=== PATIENT | male | born 1980 | race African-American/Black ===

== ENCOUNTER 2016-10-21 14:20 | Emergency (ER) | payer OTHER ==
[~2016-10-21] VITALS: Ht 177.8 cm; Wt 100.0 kg
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
[2016-10-21 15:16] VITALS: BP 140/75; PULSE 74; RESP 15; TEMP 98.2; O2SAT 98
[2016-10-21] MEDS ORDERED: CYCL1TAB29 PO (15:16)
[2016-10-21] MEDS ORDERED: NAPR500 PO (15:16)
[2016-10-21 15:33] VITALS: BP 133/84
== END 2016-10-21 15:34 | disposition home or self-care (01) ==
LOC: NEPB 14:20
DX: S16.1XXA Strain of muscle, fascia and tendon at neck level, initial encounter (principal); V49.49XA Driver injured in collision with other motor vehicles in traffic accident, initial encounter; Y93.9 Activity, unspecified; Y92.410 Unspecified street and highway as the place of occurrence of the external cause
CPT/HCPCS: 99283

== ENCOUNTER 2016-11-03 14:47 | Emergency (ER) | payer SELFPAY ==
[~2016-11-03] VITALS: Ht 177.8 cm; Wt 95.0 kg
[~2016-11-03 14:47] MED LIST: CYCL1TAB29 PO; NAPR500 PO
[2016-11-03 14:50] VITALS: BP 129/75; PULSE 92; RESP 16; TEMP 98.1; O2SAT 99
--- NOTE | 2016-11-03 14:57 | PD ---
HPI Chief Complaint: ENT Complaint Time Seen by Provider: 14:57 Travel History International Travel<30 days: No Contact w/Intl Traveler<30days: No Traveled to known affect area: No History of Present Illness HPI 36-year-old male presents to the emergency department for evaluation of worsening sore throat over the last 3 days. Patient states is worse on the left than the right. He states it's very difficult to swallow. He is able to follow his secretions. He states he is drinking warm proximal and doing warm salt water gargles but this does not help his pain. He has been taking Tylenol and ibuprofen with no relief of his symptoms. Denies any chest or tightness. No difficulty breathing. No cough. No nausea or vomiting. No other symptoms to report. PFSH Past Medical History Medical History: Denies Significant Hx Social History Alcohol Use: Yes Tobacco Use: No Substance Use: Yes (marijuana) Allergies-Medications (Allergen,Severity, Reaction): Coded Allergies: No Known Allergies (Unverified , 11/03/16) Reported Meds & Prescriptions Reported Meds & Active Scripts Active Prednisone 50 Mg Tab 50 Mg PO DAILY 5 Days Augmentin (Amoxicillin-Clavulanate) 875-125 mg Tab 875 Mg PO BID 10 Days not for use in CrCl <30 ml/min. Naprosyn (Naproxen) 500 Mg Tab 500 Mg PO Q12HR PRN Flexeril (Cyclobenzaprine HCl) 10 Mg Tab 10 Mg PO Q8HR PRN Review of Systems Except as stated in HPI: all other systems reviewed are Neg Physical Exam Narrative GENERAL: Well-nourished male patient, ambulatory no acute distress SKIN: Warm and dry. HEAD: Atraumatic. Normocephalic. EYES: Pupils equal and round. No scleral icterus. No injection or drainage. ENT: Mucosa pink and moist. Significant Erythema with exudates. There is tonsillar enlargement on the left greater than the right. Erythemic and edema extends into the posterior palate on the left. No uvular edema. No uvular, palatal, or tonsillar deviation. Airway patent. Nasal turbinates appear normal without nasal blood, purulent drainage or septal hematoma. NECK: Trachea midline. No JVD. Left tonsillar lymphadenopathy. CARDIOVASCULAR: Regular rate and rhythm. No murmur appreciated. RESPIRATORY: No accessory muscle use. Clear to auscultation. Breath sounds equal bilaterally. GASTROINTESTINAL: Abdomen soft, non-tender, nondistended. Hepatic and splenic margins not palpable. MUSCULOSKELETAL: No obvious deformities. No clubbing. No cyanosis. No edema. NEUROLOGICAL: Awake and alert. No obvious cranial nerve deficits. Motor grossly within normal limits. Normal speech. PSYCHIATRIC: Appropriate mood and affect; insight and judgment normal. Data Data Last Documented VS Vital Signs Date Time Temp Pulse Resp B/P Pulse Ox O2 Delivery O2 Flow Rate FiO2 11/03/16 14:50 98.1 92 16 129/75 99 Room Air Orders Group A Rapid Strep Screen (11/03/16 14:59) Dexamethasone Inj (Decadron Inj) (11/03/16 15:00) Ceftriaxone Inj (Rocephin Inj) (11/03/16 15:00) Lidocaine 1% Inj (50 Ml) (Xylocaine 1% I (11/03/16 15:00) Strep Culture (Group A) (11/03/16 15:00) MDM Medical Decision Making Medical Screen Exam Complete: Yes Emergency Medical Condition: Yes Medical Record Reviewed: Yes Differential Diagnosis Peritonsillar abscess versus cellulitis versus strep pharyngitis Narrative Course 36-year-old male presents to emergency department for evaluation of sore throat. Physical exam is consistent with peritonsillar abscess. Patient is given Decadron and Rocephin here in the emergency department. He'll be discharged home on oral steroids and Augmentin. He is encouraged to follow-up with the research instrumentation technician and return immediately with any acute worsening of symptoms. Diagnosis Primary Impression: Peritonsillar abscess Referrals: Ear / Nose / Throat Specialist Primary Care Physician Patient Instructions: General Instructions, Peritonsillar Abscess (ED) Departure Forms: Tests/Procedures, Work Release Enter return to work date: Nov 08, 2016 Additional Instructions: Warm salt water gargles may help to alleviate symptoms Soft, non-abrasive foods Follow-up with your primary care provider Start antibiotics tonight and take until they are gone Return immediately to the emergency department with any acute worsening of symptoms Med/Other Pt SpecificInfo: Prescription(s) given Scripts Prednisone 50 Mg Tab50 Mg PO DAILY 5 Days Ref 0 Prov:Lottie Ortega 11/03/16 Amoxicillin-Clavulanate (Augmentin)875-125 mg [id number] Mg PO BID 10 Days Ref 0 not for use in CrCl <30 ml/min. Prov:Lottie Ortega 11/03/16 Disposition: 01 DISCHARGE HOME Condition: Stable Lottie Ortega Nov 03, 2016 14:57
[2016-11-03] MEDS ORDERED: DEXAMETHASONE SOD PHOS 20 MG/5 ML VIAL IM ONE (15:00)
[2016-11-03] MEDS ORDERED: LIDOCAINE HCL 1% 50 ML VIAL XX ONE (15:00)
[2016-11-03] MEDS ORDERED: AUGM875T PO (16:07)
[2016-11-03] MEDS ORDERED: PRED50 PO (16:07)
== END 2016-11-03 16:55 | disposition home or self-care (01) ==
LOC: NEPB 14:47
DX: F12.90 Cannabis use, unspecified, uncomplicated (principal); J36 Peritonsillar abscess
CPT/HCPCS: 87081; 87880; 96365; 96372; 99283; J0696; J1100

== ENCOUNTER 2017-07-22 09:32 | Emergency (ER) | payer SELFPAY ==
[~2017-07-22] VITALS: Ht 177.8 cm; Wt 100.0 kg
[~2017-07-22 09:32] MED LIST changes: +AUGM875T PO; +CYCL10TA PO; -CYCL1TAB29 PO; +PRED50 PO
[2017-07-22 09:34] VITALS: BP 155/95; PULSE 79; RESP 12; TEMP 98.4; O2SAT 99
[2017-07-22] MEDS ORDERED: CYCL10TA PO (10:26)
[2017-07-22] MEDS ORDERED: NABU1TAB37 PO (10:26)
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
== END 2017-07-22 11:22 | disposition home or self-care (01) ==
LOC: NEPD 09:32
DX: M54.2 Cervicalgia (principal); R51 Headache; M54.9 Dorsalgia, unspecified; Z79.899 Other long term (current) drug therapy
CPT/HCPCS: 99284